=== PATIENT | male | born 1990 | race Caucasian/White ===

== ENCOUNTER → 2024-05-10 | Outpatient (REF) | payer BC | LOC: M LAB REF 16:19 | PROVIDERS: ATTEND Physician Assistant Medical | DX: M79.661 Pain in right lower leg (principal) ==

== ENCOUNTER → 2024-05-13 | Outpatient (CLI) | payer BC | LOC: M RAD 12:34 | PROVIDERS: ATTEND Physician Assistant Medical | DX: M79.661 Pain in right lower leg (principal) ==

== ENCOUNTER → 2024-06-14 | Outpatient (CLI) | payer BC | LOC: M WUC 08:28 | PROVIDERS: ATTEND Nurse Practitioner Family | DX: M79.675 Pain in left toe(s) (principal) ==

== ENCOUNTER → 2024-07-08 | Outpatient (CLI) | payer BC | LOC: M RAD 11:45 | PROVIDERS: ATTEND Nurse Practitioner Family | DX: R10.31 Right lower quadrant pain (principal) ==

== ENCOUNTER 2024-09-09 17:56 | Emergency (ER) | payer BC, OTHER ==
[~2024-09-09] VITALS: Ht 177.8 cm; Wt 77.7 kg
[2024-09-09] MEDS ORDERED: LOTE5DRO9 (18:11)
[2024-09-09] MEDS ORDERED: RABIES IMMUNE GLOBULIN 1500 INTERNATIONAL UNIT/5ML VIAL IM.IMMUN ONE (18:20)
[2024-09-09] MEDS: DOXYCYCLINE HYCLATE 100MG TABLET PO ONE (18:42)
[2024-09-09] MEDS: CLINDAMYCIN 150MG CAPSULE PO ONE (18:42)
[2024-09-09] MEDS: RABIES VACCINE 2.5 INTERNATIONAL UNITS/ML VIAL (RABAVERT) IM.IMMUN ONE (18:53)
[2024-09-09] MEDS: RABIES IMMUNE GLOBULIN 1500 INTERNATIONAL UNIT/5ML VIAL IM.IMMUN ONE (19:19)
[2024-09-09] MEDS: RABIES IMMUNE GLOBULIN 300 INTERNATIONAL UNITS/1ML VIAL IM.IMMUN ONE (19:19)
[2024-09-09] MEDS ORDERED: CLIN150C17 PO (19:21)
[2024-09-09] MEDS ORDERED: DOXY-441 PO (19:21)
[2024-09-09 19:45] VITALS: BP 119/70; TEMP 98.7; O2SAT 97
== END 2024-09-09 19:55 | disposition home or self-care (01) ==
LOC: M ED 17:56
DX: S61.032A Puncture wound without foreign body of left thumb without damage to nail, initial encounter (principal); W55.01XA Bitten by cat, initial encounter; Y92.830 Public park as the place of occurrence of the external cause; Y93.9 Activity, unspecified; Y99.9 Unspecified external cause status

== ENCOUNTER 2024-09-13 18:34 | Emergency (ER) | payer BC, OTHER ==
[~2024-09-13] VITALS: Ht 177.8 cm; Wt 78.3 kg
[~2024-09-13 18:34] MED LIST: CLIN150C17 PO; DOXY-441 PO; LOTE5DRO9
[2024-09-13 18:36] VITALS: BP 134/79; TEMP 97.4; O2SAT 97
[2024-09-13] MEDS: RABIES VACCINE 2.5 INTERNATIONAL UNITS/ML VIAL (RABAVERT) IM ONE (20:05)
== END 2024-09-13 20:13 | disposition home or self-care (01) ==
LOC: M ED 18:34
DX: Z29.14 Encounter for prophylactic rabies immune globulin (principal); Z20.3 Contact with and (suspected) exposure to rabies; Z88.1 Allergy status to other antibiotic agents; Z79.899 Other long term (current) drug therapy

== ENCOUNTER 2024-09-16 10:36 | Emergency (ER) | payer BC, OTHER ==
[~2024-09-16] VITALS: Ht 177.8 cm; Wt 77.3 kg
[2024-09-16 10:38] VITALS: BP 134/79; TEMP 97.4; O2SAT 97
[2024-09-16] MEDS: RABIES VACCINE 2.5 INTERNATIONAL UNITS/ML VIAL (RABAVERT) IM ONE (11:00)
== END 2024-09-16 11:10 | disposition home or self-care (01) ==
LOC: M ED 10:36
DX: Z23 Encounter for immunization (principal); Z20.3 Contact with and (suspected) exposure to rabies; Z79.899 Other long term (current) drug therapy; Z88.0 Allergy status to penicillin